=== PATIENT | female | born 1980 | race Caucasian/White ===

== ENCOUNTER 2018-02-28 10:01 | Day surgery (SDC) | payer BC ==
[2018-02-24 12:42] VITALS: BMI 34.2
[2018-02-28] MEDS ORDERED: MIDAZOLAM HCL 2 MG/2 ML SINGLE DOSE VIAL ONE (10:19)
[2018-02-28] MEDS ORDERED: PROPOFOL 20 ML ONE (10:19)
[2018-02-28] MEDS ORDERED: LIDOCAINE HCL 2% 100 MG/5 ML DISP.SYRIN ONE (10:21)
[2018-02-28] MEDS ORDERED: BUPIVACAINE HCL/PF 0.5% (5MG/ML) 10 ML VIAL ONE (11:22)
[2018-02-28] MEDS ORDERED: morphine CARPU-JECT 10 MG/1 ML DISP.SYRIN ONE (11:24)
[2018-02-28] MEDS ORDERED: ONDANSETRON 4 MG/2 ML VIAL ONE ×2 (11:36→12:39)
[2018-02-28] MEDS ORDERED: DEXAMETHASONE SOD PHOSPHATE 4 MG/1 ML VIAL ONE (11:36)
[2018-02-28] MEDS ORDERED: KETOROLAC TROMETHAMINE 30 MG/1 ML VIAL ONE (11:36)
[2018-02-28] MEDS ORDERED: PROMETHAZINE HCL 25 MG/1 ML VIAL IVPB PRN (11:45)
[2018-02-28] MEDS ORDERED: oxyCODONE HCL 5 MG TABLET PO PRN (11:45)
[2018-02-28] MEDS ORDERED: LACTATED RINGERS SOLUTION 1,000 ML IV SCH (11:45)
[2018-02-28] MEDS ORDERED: ONDANSETRON 4 MG/2 ML VIAL IVPUSH PRN (11:45)
[2018-02-28] MEDS ORDERED: BUPIVACAINE HCL/PF 0.5% (5MG/ML) 10 ML VIAL IJ ONE (12:01)
[2018-02-28] MEDS ORDERED: morphine CARPU-JECT 10 MG/1 ML DISP.SYRIN IM ONE (12:01)
[2018-02-28 15:16] VITALS: TEMP 98
[2018-02-28 15:18] VITALS: BP 104/66; PULSE 78
--- NOTE | 2018-03-01 06:27 | OP ---
DATE OF OPERATION: 02/28/2018 PREOPERATIVE DIAGNOSIS: Torn medial meniscus to the left knee. POSTOPERATIVE DIAGNOSES: Torn medial and lateral meniscus, left knee with chondromalacia, hypertrophic synovium, and joint debris. PROCEDURE PERFORMED: Operative arthroscopy of the left knee with partial medial and lateral meniscectomy, chondroplasty, synovectomy, and joint debridement. SURGEON: Omid Martinez MD [employer]: Carloz Sewell CFA ANESTHESIA: Radu Tamayo MD; general anesthesia. Procedure consisted of the patient being brought in the operating room and gently transferred from the stretcher to the OR table with all bony prominences well padded. The left leg was prepared and draped in a sterile fashion. The patient was given intravenous antibiotics and copious irrigation throughout the procedure to minimize the risk of infection. A complete risks and benefits discussion was conducted with the patient, which was inclusive of, but not limited to, infection, bleeding, , paralysis, increased pain, need for repeat surgery. The patient asked questions, understood the procedure, and desired to proceed with surgical treatment. A complete timeout, which was inclusive of site of surgery, surgeon, anesthesiologist, type of surgery was performed. Following sterile preparation and draping of the left leg, the leg was exsanguinated using sterile Esmarch bandage, tourniquet inflated to 350 mmHg. Suprapatellar and medial and lateral joint line portals were used to introduce the arthroscope and arthroscopic instruments. The knee was examined. There was noted to be hypertrophic synovium in the suprapatellar pouch. Partial synovectomy was performed. The inferior surface of the patella had damage consistent with chondromalacia, and this was smoothed using shaver and radiofrequency wand. Medial and lateral gutters without plica or loose body. Medial meniscus was found to have a tear of the posterior horn. This was resected using shaver and radiofrequency wand. The intercondylar region was noted to have joint debris. Joint debridement was performed. Cruciate ligaments were found to be intact. Lateral meniscus was found to have a tear of the posterior horn, and this was resected using shaver and radiofrequency wand. The knee was then copiously irrigated with sterile saline irrigant, and wounds were closed with 4-0 undyed Vicryl, followed by Steri-Strips, Xeroform, 4 x 4's, Combine, sterile Webril, Silverio bandage, and a knee immobilizer. The patient was then gently awoken from anesthesia without incident and transferred from the operating room to the recovery room in satisfactory condition. There were no intraoperative complications. OMID MARTINEZ M.D. [id number]
== END 2018-02-28 15:27 | disposition home or self-care (01) ==
LOC: FASU 10:01
PROVIDERS: ATTEND Orthopaedic Surgery
PROC: 0SBD4ZZ Excision of Left Knee Joint, Percutaneous Endoscopic Approach (ICD-10-PCS; 2018-02-28)
PROC: 0SBD4ZZ Excision of Left Knee Joint, Percutaneous Endoscopic Approach (ICD-10-PCS; 2018-02-28)
PROC: 0SBD4ZZ Excision of Left Knee Joint, Percutaneous Endoscopic Approach (ICD-10-PCS; principal; 2018-02-28 11:20)
DX: S83.242A Other tear of medial meniscus, current injury, left knee, initial encounter (principal); S83.282A Other tear of lateral meniscus, current injury, left knee, initial encounter; M94.262 Chondromalacia, left knee; M67.262 Synovial hypertrophy, not elsewhere classified, left lower leg; M25.862 Other specified joint disorders, left knee; X58.XXXA Exposure to other specified factors, initial encounter; Y93.9 Activity, unspecified; Y92.9 Unspecified place or not applicable
CPT/HCPCS: 82962; 84703; 88304-TC; 94760